=== PATIENT | male | born 1955 | race Caucasian/White ===

== ENCOUNTER → 2023-10-31 06:51 | Day surgery (SDC) | payer OTHER, SELFPAY ==
[2023-10-31 07:40] LABS: Glucose - Point of Care 136 mg/dl (70-99)
== END ==
LOC: CATH 06:51
PROVIDERS: ATTENDING PHYSICIAN Internal Medicine; FAMILY PHYSICIAN Internal Medicine
DX: I48.0 Paroxysmal atrial fibrillation (principal); I25.10 Atherosclerotic heart disease of native coronary artery without angina pectoris; I47.20 Ventricular tachycardia, unspecified; I25.5 Ischemic cardiomyopathy; E11.8 Type 2 diabetes mellitus with unspecified complications; Z79.01 Long term (current) use of anticoagulants; Z79.84 Long term (current) use of oral hypoglycemic drugs; Z79.85 Long-term (current) use of injectable non-insulin antidiabetic drugs; Z95.1 Presence of aortocoronary bypass graft
CPT/HCPCS: 82962; 92960; 93005

== ENCOUNTER → 2025-04-15 07:43 | Outpatient (REF) | payer MEDICARE, SELFPAY | LOC: RCS 07:43 | PROVIDERS: ATTENDING PHYSICIAN Internal Medicine Cardiovascular Disease; FAMILY PHYSICIAN Physician Assistant | DX: I48.0 Paroxysmal atrial fibrillation (principal); I42.9 Cardiomyopathy, unspecified | CPT/HCPCS: 93306 ==